=== PATIENT | male | born 1995 | race Caucasian/White ===

== ENCOUNTER 2017-07-29 17:09 | Emergency (ER) | payer OTHER ==
[~2017-07-29] VITALS: Ht 180.3 cm; Wt 63.5 kg
[~2017-07-29 17:09] MED LIST: MULTIVITAMIN1 TAB PO
[2017-07-29 17:22] VITALS: BP 139/89
--- NOTE | 2017-07-29 17:29 | ED HAND/WRIST INJURY COMPLAINT ---
History of Present Illness General Chief Complaint: Hand or Wrist Injury Stated Complaint: PER PT"A 20LB WEIGHT DROPPED ON MY R HAND" Source: patient Exam Limitations: no limitations Vital Signs & Intake/Output Vital Signs & Intake/Output Vital Signs Date Time Temp Pulse Resp B/P B/P Pulse O2 O2 Flow FiO2 Mean Ox Delivery Rate 07/29 1722 98.0 80 16 139/89 99 Room Air Reconcile Medications Ibuprofen 800 MG TABLET 1 TAB PO TID pain Ibuprofen 800 MG TABLET 1 TAB PO TID pain Multivitamin (Multiple Vitamins) 1 TAB TAB 1 TAB PO DAILY SUPPLEMENT ( Reported) Triage Note: 21M DROPPED 20 POUND WEIGHT ON RIGHT HAND WITH SWELLING AND BLEEDING ABRASIONS TO LATERAL SIDE OF TOP OF HAND. SWELLING NOTED TO SITE. +CMS. HAS NOT TAKEN ANYTHING FOR PAIN. CURRENT 01/10. BACITRACIN AND BANDAID APPLIED, MEDICATED WITH MOTRIN Triage Nurses Notes Reviewed? yes Occurred: just prior to arrival Duration: day(s): Timing: recent history Injury Environment: home Severity: moderate, severe Pain/Injury Location: Left: Arm. No Modifying Factors: none HPI: 21 year old male comes in with right abdominal pain. Dropped 20 IB weight on hand. swelling. small cut. sharp throbbing pain. no wrist pain. denies any other associated symptoms. (Lester Cason) Allergies Coded Allergies: NO KNOWN ALLERGIES (07/29/17) (Santa LOW,Arsh) Past History Travel History Traveled to [place] past 21 day No Medical History Any Pertinent Medical History? see below for history Neurological: NONE EENT: NONE Cardiovascular: NONE Respiratory: NONE Gastrointestinal: NONE Hepatic: NONE Renal: NONE Musculoskeletal: NONE Psychiatric: NONE Endocrine: NONE Blood Disorders: NONE Cancer(s): NONE Surgical History Surgical History: N Psychosocial History Who do you live with Family What is your primary language Honduran Tobacco Use: Never used Family History Hx Contributory? No (Lester Cason) Review of Systems Review of Systems Constitutional: Reports: no symptoms. EENTM: Reports: no symptoms. Respiratory: Reports: no symptoms. Cardiovascular: Reports: no symptoms. GI: Reports: no symptoms. Genitourinary: Reports: no symptoms. Musculoskeletal: Reports: see HPI. Skin: Reports: see HPI. Neurological/Psychological: Reports: no symptoms. Hematologic/Endocrine: Reports: no symptoms. Immunologic/Allergic: Reports: no symptoms. All Other Systems: Reviewed and Negative (Lester Cason) Physical Exam Physical Exam General Appearance: well developed/nourished, mild distress Head: atraumatic Eyes: Bilateral: normal appearance. Ears, Nose, Throat: normal ENT inspection, hearing grossly normal Neck: normal inspection Cardiovascular/Respiratory: no respiratory distress Back: normal inspection Hand Left: normal inspection Hand Right: swelling, tender, SMALL SKIN ABRASION Neurologic/Tendon: normal sensation, normal motor functions, normal tendon functions, responds to pain, no evidence tendon injury, no pulse deficit Skin: intact, normal color, warm/dry (Lester Cason) Progress Differential Diagnosis: contusion, fracture, gout, paronychia, septic arthritis, sprain Plan of Care: Current Medications Sig/Brenna Start time Last Medication Dose Stop Time Status Admin Ibuprofen 600 MG ONCE ONE 07/29 1729 UNVr 07/29 (Motrin) 07/29 Diagnostic Imaging: Viewed by Me: Radiology Read. Discussed w/RAD: Radiology Read. Comments: PATIENT: KENIA OLIVARES PRESENT AGE: 21 PATIENT ACCOUNT NO: [id number] : 97 LOCATION: [facility] ORDERING PHYSICIAN: Lester MÉNDEZ SERVICE DATE: 07/29/17 EXAM TYPE: RAD - XRY-HAND, RIGHT EXAMINATION: XR HAND, RIGHT CLINICAL INFORMATION: Right hand pain. COMPARISON: No relevant prior imaging. TECHNIQUE: PA, lateral, and oblique views of the right hand. FINDINGS: There is no acute fracture or dislocation. Joint spaces are maintained. Soft tissues are unremarkable. IMPRESSION: Unremarkable radiographs of the right hand. DICTATED BY: Daniel Bowers MD DATE/TIME DICTATED:07/29/171834 ELECTRIC TR[employer] SWITCH MAINTAINER:KELSEA DATE/TIME TRANSCRIBED:07/29/171834 CONFIDENTIAL, DO NOT COPY WITHOUT APPROPRIATE AUTHORIZATION. <Electronically signed in Other Vendor System> SIGNED BY: Daniel Bowers MD 07/29 (Lester Cason) Departure Departure Disposition: HOME OR SELF CARE Condition: Stable Clinical Impression Primary Impression: Contusion of right hand Secondary Impressions: Skin abrasion Referrals: Klaus LOW,Ward Francis (PCP/Family) Additional Instructions: ice. motrin, rest. return if any other concerns/worsening of symptoms. Departure Forms: Customer Survey General Discharge Information Prescriptions: Current Visit Scripts Ibuprofen 1 TAB PO TID #30 TAB Ibuprofen 1 TAB PO TID #30 TAB (Lester Cason) PA/EXTERIOR INTERIOR SPECIALIST Co-Sign Statement Statement: ED Attending supervision documentation- I saw and evaluated the patient. I have also reviewed all the pertinent lab results and diagnostic results. I agree with the findings and the plan of care as documented in the PA's/EXTERIOR INTERIOR SPECIALIST's documentation. x I have reviewed the ED Record and agree with the PA's/EXTERIOR INTERIOR SPECIALIST's documentation. [] Additions or exceptions (if any) to the PAs/EXTERIOR INTERIOR SPECIALIST's note and plan are summarized below: [] (Santa LOW,Arsh)
--- NOTE | 2017-07-29 18:42 | RADIOLOGY REPORT ---
EXAMINATION: XR HAND, RIGHT CLINICAL INFORMATION: Right hand pain. COMPARISON: No relevant prior imaging. TECHNIQUE: PA, lateral, and oblique views of the right hand. FINDINGS: There is no acute fracture or dislocation. Joint spaces are maintained. Soft tissues are unremarkable. IMPRESSION: Unremarkable radiographs of the right hand.
[2017-07-29] MEDS ORDERED: IBUPROFEN800 M1 PO ×2 (18:49→18:51)
== END 2017-07-29 19:00 ==
LOC: ERH 17:09
DX: S60.221A Contusion of right hand, initial encounter (principal); S60.511A Abrasion of right hand, initial encounter; W20.8XXA Other cause of strike by thrown, projected or falling object, initial encounter; Y93.B3 Activity, free weights; Y92.009 Unspecified place in unspecified non-institutional (private) residence as the place of occurrence of the external cause
CPT/HCPCS: 73130-RT